=== PATIENT | female | born 1975 | race Caucasian/White ===

== ENCOUNTER 2021-08-10 13:54 | Emergency (ER) | payer OTHER ==
[~2021-08-10] VITALS: Ht 167.6 cm; Wt 95.7 kg
[2021-08-10] MEDS ORDERED: DICLOFENAC SODI75 MG PO (19:24)
[2021-08-10] MEDS ORDERED: NITROFURANTOIN100 MG PO (19:24)
== END 2021-08-10 20:49 | disposition home or self-care (01) ==
LOC: ER 13:54
DX: N39.0 Urinary tract infection, site not specified (principal); R10.31 Right lower quadrant pain; N83.201 Unspecified ovarian cyst, right side